=== PATIENT | male | born 1995 | race Caucasian/White ===

== ENCOUNTER → 2016-11-18 | Outpatient (CLI) | payer BC, OTHER ==
[~2016-11-18] MED LIST: ASCO1CAP3 PO; FEXO1TAB49 PO; MULTTAB5 PO; [UNRECOGNIZED DRUG - OTHER] PO
--- NOTE | 2016-11-18 11:52 | DIAGNOSTIC IMAGING REPORT ---
LEFT SHOULDER MIN 2 VIEWS CLINICAL HISTORY: 21 years-old Male presenting with LEFT SHOULDER PAIN. TECHNIQUE: External rotation, transscapular Y, and axillary views of the left shoulder were obtained. COMPARISON: None. FINDINGS: Glenohumeral and acromioclavicular joints congruent. No subluxation of the humeral head. Normal morphology of the acromion. No degenerative change. No acute fracture or malalignment. Visualized portion of the left hemithorax is normal. IMPRESSION: No acute osseous injury of the left shoulder. Electronically signed by: Mayito Sousa M.D. 11/18/2016 11:50 AM Dictated Date/Time: 11/18/2016 11:49 AM
== END | disposition home or self-care (01) ==
LOC: C.RDSM 11:29
PROVIDERS: ATTEND Internal Medicine
DX: M25.512 Pain in left shoulder (principal)